=== PATIENT | male | born 1985 | race Caucasian/White ===

== ENCOUNTER 2019-02-15 11:21 | Emergency (ER) | payer OTHER ==
[~2019-02-15] VITALS: Ht 172.7 cm; Wt 76.2 kg
[~2019-02-15 11:21] MED LIST: IBUP-1955 PO
--- NOTE | 2019-02-15 12:50 | NUR ---
PATIENT WAS MSE BY DR WALLS IN ROOM 05A. PATIENT A & O X4.
[2019-02-15 13:20] LABS: BASOPHILS % (AUTO) 0.6 % (0.0-2.0); EOSINOPHILS % (AUTO) 0.8 % (0.0-7.0); HEMATOCRIT 45.1 % (36.7-47.1); HEMOGLOBIN 14.7 g/dL (12.5-16.3); LYMPHOCYTES # (AUTO) 1.9 K/uL (20.0-40.0); LYMPHOCYTES % (AUTO) 28.9 % (20.5-51.5); MEAN CORPUSCULAR HEMOGLOBIN 26.3 uug (23.8-33.4); MEAN CORPUSCULAR HGB CONC 33 g/dL (32.5-36.3); MEAN CORPUSCULAR VOLUME 80.7 fL (73.0-96.2); MONOCYTES # (AUTO) 0.4 K/uL (2.0-10.0); MONOCYTES % (AUTO) 6.9 % (0.0-11.0); NEUTROPHILS # (AUTO) 4.1 K/uL (1.8-8.9); NEUTROPHILS % (AUTO) 62.8 % (38.5-71.5); PLATELET COUNT (AUTO) 219 K/uL (152-348); RED BLOOD CELL COUNT(AUTO) 5.58 MIL/uL (4.06-5.63); WHITE BLOOD COUNT (AUTO) 6.5 K/uL (3.6-10.2)
[2019-02-15 13:24] LABS: CREATININE 0.8 mg/dL (0.6-1.3); POTASSIUM 3.4 mmol/L (3.5-5.1)
--- NOTE | 2019-02-15 13:49 | NUR ---
Patient discharged to home in stable conditon. Written and verbal after care instructions given. Patient verbalizes understanding of instructions.
[2019-02-15 13:52] VITALS: BP 120/75
== END 2019-02-15 13:59 | disposition home or self-care (01) ==
LOC: ER 11:21
DX: R00.2 Palpitations (principal); F41.9 Anxiety disorder, unspecified; Z79.1 Long term (current) use of non-steroidal anti-inflammatories (NSAID)
CPT/HCPCS: 36415; 70030-TC; 71045; 85025; 93005; A4663

== ENCOUNTER 2019-07-30 14:36 | Emergency (ER) | payer OTHER ==
[~2019-07-30] VITALS: Ht 175.3 cm; Wt 72.6 kg
--- NOTE | 2019-07-30 15:20 | NUR ---
PATIENT IS IN ROOM 2. HE IS AWAKE, ALERT, ORIENTED X4 IN NO DISTRESS.
[2019-07-30] MEDS ORDERED: ALBUTEROL SULFATE 2.5 MG/3 ML NEBU NEB ONE (15:30)
[2019-07-30] MEDS ORDERED: ALBUTEROL SULFATE 2.5 MG/3 ML NEBU ONE (15:49)
[2019-07-30] MEDS ORDERED: LIDOCAINE VISCUS 2% 15 ML UDC MM ONE (16:00)
[2019-07-30] MEDS ORDERED: MAG HYDROX/AL HYDROX/SIMETH 30 ML LIQUID UDC PO ONE (16:00)
[2019-07-30] MEDS ORDERED: PANTOPRAZOLE SODIUM 40 MG TABLET.DR PO ONE ×2 (16:00→16:11)
[2019-07-30] MEDS ORDERED: MAG HYDROX/AL HYDROX/SIMETH 30 ML LIQUID UDC ONE (16:10)
[2019-07-30] MEDS ORDERED: diphenhydrAMINE 50 MG/1 ML VIAL ONE (16:10)
[2019-07-30] MEDS ORDERED: LIDOCAINE VISCUS 2% 15 ML UDC ONE (16:11)
[2019-07-30] MEDS ORDERED: diphenhydrAMINE 50 MG/1 ML VIAL IM ONE (16:15)
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
--- NOTE | 2019-07-30 17:12 | NUR ---
DC, RX AND F/U INSTRUCTIONS GIVEN AND EXPLAINED TO PATIENT WHO STATES HE UNDERSTANDS ALL INSTRUCTIONS
== END 2019-07-30 17:15 | disposition home or self-care (01) ==
LOC: ER 14:36
DX: K21.9 Gastro-esophageal reflux disease without esophagitis (principal); R06.02 Shortness of breath; T78.1XXA Other adverse food reactions, not elsewhere classified, initial encounter; X58.XXXA Exposure to other specified factors, initial encounter; K08.89 Other specified disorders of teeth and supporting structures
CPT/HCPCS: 71045; 94640; 96372; 99284; J1200; A4663

== ENCOUNTER 2019-09-10 07:01 | Emergency (ER) | payer OTHER ==
[~2019-09-10] VITALS: Ht 177.8 cm; Wt 77.1 kg
--- NOTE | 2019-09-10 07:12 | NUR ---
Dr. Babin at bedside for MSE
[2019-09-10] MEDS ORDERED: LORAZEPAM 1 MG TABLET PO ONE (07:30)
[2019-09-10] MEDS ORDERED: ACETAMINOPHEN ES 500 MG TABLET PO ONE (07:30)
[2019-09-10] MEDS ORDERED: ACETAMINOPHEN ES 500 MG TABLET ONE (07:36)
[2019-09-10] MEDS ORDERED: LORAZEPAM 1 MG TABLET ONE (07:36)
[2019-09-10 07:43] LABS: BASOPHILS % (AUTO) 0.5 % (0.0-2.0); EOSINOPHILS % (AUTO) 0.4 % (0.0-7.0); HEMATOCRIT 44.1 % (36.7-47.1); HEMOGLOBIN 14.6 g/dL (12.5-16.3); LYMPHOCYTES # (AUTO) 1.2 K/uL (20.0-40.0); LYMPHOCYTES % (AUTO) 21.1 % (20.5-51.5); MEAN CORPUSCULAR HEMOGLOBIN 26.5 uug (23.8-33.4); MEAN CORPUSCULAR HGB CONC 33 g/dL (32.5-36.3); MEAN CORPUSCULAR VOLUME 80.2 fL (73.0-96.2); MONOCYTES # (AUTO) 0.3 K/uL (2.0-10.0); MONOCYTES % (AUTO) 5.9 % (0.0-11.0); NEUTROPHILS # (AUTO) 4.1 K/uL (1.8-8.9); NEUTROPHILS % (AUTO) 72.1 % (38.5-71.5); PLATELET COUNT (AUTO) 208 K/uL (152-348); WHITE BLOOD COUNT (AUTO) 5.7 K/uL (3.6-10.2)
--- NOTE | 2019-09-10 07:43 | NUR ---
Patient taken to Radiology dept in stable condition
[2019-09-10 08:00] LABS: BILIRUBIN,DIRECT 0.2 mg/dL (0.0-0.2); BILIRUBIN,TOTAL 0.7 mg/dL (0.2-1.0); CREATININE 0.8 mg/dL (0.6-1.3); POTASSIUM 3.8 mmol/L (3.5-5.1); TOTAL PROTEIN, SERUM 6.9 g/dL (6.4-8.2)
--- NOTE | 2019-09-10 08:58 | NUR ---
Patient discharged to home in stable condition. Written and verbal after care instructions given. Patient verbalizes understanding of instructions. Stressed follow up or return to ER for worsening s/s. Patient ambulating with steady gait. Denies any Nausea or Dizziness. NAD noted
[2019-09-10 09:12] VITALS: BP 126/83
== END 2019-09-10 08:58 | disposition home or self-care (01) ==
LOC: ER 07:04
DX: R07.2 Precordial pain (principal); F41.8 Other specified anxiety disorders; K05.00 Acute gingivitis, plaque induced; K04.01 Reversible pulpitis; K02.9 Dental caries, unspecified; K21.9 Gastro-esophageal reflux disease without esophagitis
CPT/HCPCS: 36415; 70030-TC; 71046; 83690; 85025; 93005; A4663; A9150

== ENCOUNTER 2019-10-05 22:04 | Emergency (ER) | payer OTHER ==
[~2019-10-05] VITALS: Ht 175.3 cm; Wt 77.1 kg
--- NOTE | 2019-10-05 22:20 | NUR ---
Dr. Underwood at bedside for MSE
[2019-10-05 23:25] LABS: BASOPHILS % (AUTO) 0.6 % (0.0-2.0); EOSINOPHILS % (AUTO) 0.7 % (0.0-7.0); HEMATOCRIT 44.4 % (36.7-47.1); HEMOGLOBIN 14.1 g/dL (12.5-16.3); LYMPHOCYTES # (AUTO) 1.6 K/uL (20.0-40.0); LYMPHOCYTES % (AUTO) 29.7 % (20.5-51.5); MEAN CORPUSCULAR HEMOGLOBIN 25.8 uug (23.8-33.4); MEAN CORPUSCULAR HGB CONC 32 g/dL (32.5-36.3); MEAN CORPUSCULAR VOLUME 81.2 fL (73.0-96.2); MONOCYTES # (AUTO) 0.4 K/uL (2.0-10.0); NEUTROPHILS # (AUTO) 3.3 K/uL (1.8-8.9); PLATELET COUNT (AUTO) 180 K/uL (152-348); RED BLOOD CELL COUNT(AUTO) 5.47 MIL/uL (4.06-5.63); WHITE BLOOD COUNT (AUTO) 5.5 K/uL (3.6-10.2)
[2019-10-05 23:36] LABS: CARBON DIOXIDE 30 mmol/L (21-32); CHLORIDE 104 mmol/L (98-107); CREATININE 0.9 mg/dL (0.6-1.3); GLUCOSE 87 mg/dL (74-106); POTASSIUM 3.6 mmol/L (3.5-5.1); UREA NITROGEN, BLOOD 8 mg/dL (7-18)
[2019-10-05 23:54] LABS: ALANINE AMINOTRANSFERASE 35 U/L (16-63); ALKALINE PHOSPHATASE 78 U/L (50-136); ASPARTATE AMINOTRANSFERASE 17 U/L (15-37); BILIRUBIN,TOTAL 0.8 mg/dL (0.2-1.0); FERRITIN 122 ng/mL (26-388); LACTATE DEHYDROGENASE 141 U/L (85-227); TOTAL PROTEIN, SERUM 6.8 g/dL (6.4-8.2)
[2019-10-06 00:06] LABS: ABG BASE EXCESS 1.5 mmol/L; ABG HCO3 23.3 mmol/L; ABG PCO2 29.1 mmHg (35.0-45.0); ABG PH 7.521 (7.350-7.450); ABG PO2 114.4 mmHg (75.0-100.0); ABG SITE RIGHT RADIAL; ABG TOTAL HEMOGLOBIN 14.4 G/dL (13.5-18.0); MetHb 0.3 % (0.0-1.5); O2Hb 97.5 % (94.0-97.0); VENT MODE Nasal Cannula
[2019-10-06 00:17] LABS: CREATINE KINASE, TOTAL 117 U/L (39-308)
--- NOTE | 2019-10-06 00:53 | NUR ---
IV removed. Catheter intact and site benign. Pressure and 4x4 gauze applied to site. No bleeding noted.
--- NOTE | 2019-10-06 00:56 | NUR ---
Patient discharged to home in stable condition. Written and verbal after care instructions given. Patient verbalizes understanding of instructions. Stressed follow up or return to ER for worsening s/s. aa/ox4. able to speak in complete sentences respirations even and unlabored no s/s of distress in stable condition ambulatory with steady gait all belongings with pt
[2019-10-06 00:58] VITALS: BP 132/74
== END 2019-10-06 00:59 | disposition home or self-care (01) ==
LOC: ER 22:06
DX: J18.9 Pneumonia, unspecified organism (principal); Z20.828 Contact with and (suspected) exposure to other viral communicable diseases; K21.9 Gastro-esophageal reflux disease without esophagitis; F41.0 Panic disorder [episodic paroxysmal anxiety]
CPT/HCPCS: 0099U; 36600; 71045; 80053; 82550; 82728; 83605; 83615; 83880; 84145; 84484; 85025; 85379; 85385; 85730; 86140; 87040 ×2; 87400; 93005; 99285; U0003; 70030-TC; A4663

== ENCOUNTER 2019-10-12 21:02 | Emergency (ER) | payer OTHER ==
[~2019-10-12] VITALS: Ht 172.7 cm; Wt 66.3 kg
[2019-10-12] MEDS ORDERED: IV NORMAL SALINE 1000 ML BAG IV ONE (21:30)
[2019-10-12] MEDS ORDERED: ONDANSETRON 4 MG/2 ML VIAL IV ONE (21:30)
[2019-10-12] MEDS ORDERED: HYDROMORPHONE 1 MG/1 ML DISP.SYRIN IV ONE (21:30)
[2019-10-12] MEDS ORDERED: ONDANSETRON 4 MG/2 ML VIAL ONE (21:32)
[2019-10-12] MEDS ORDERED: HYDROMORPHONE 1 MG/1 ML DISP.SYRIN ONE (21:32)
[2019-10-12 21:40] LABS: *BILIRUBIN,URIN NEGATIVE (NEGATIVE); *BLOOD, URINE NEGATIVE (NEGATIVE); *CLARITY,URINE CLEAR (CLEAR); *COLOR,URINE YELLOW (YELLOW); *KETONES,URINE 1+ (NEGATIVE); *UROBILINOGEN,URINE 0.2 E.U./dl (NORMAL); LEUKOCYTE ESTERASE ,URINE NEGATIVE (NEGATIVE); NITRITE, URINE NEGATIVE (NEGATIVE); UGLUCOSE NEGATIVE (NEGATIVE)
[2019-10-12 21:41] LABS: BASOPHILS % (AUTO) 0.3 % (0.0-2.0); EOSINOPHILS % (AUTO) 0.3 % (0.0-7.0); HEMATOCRIT 44.3 % (36.7-47.1); HEMOGLOBIN 14.4 g/dL (12.5-16.3); LYMPHOCYTES # (AUTO) 1.3 K/uL (20.0-40.0); LYMPHOCYTES % (AUTO) 17.3 % (20.5-51.5); MEAN CORPUSCULAR HEMOGLOBIN 26.1 uug (23.8-33.4); MEAN CORPUSCULAR HGB CONC 33 g/dL (32.5-36.3); MEAN CORPUSCULAR VOLUME 80.3 fL (73.0-96.2); MONOCYTES # (AUTO) 0.3 K/uL (2.0-10.0); NEUTROPHILS % (AUTO) 78.1 % (38.5-71.5); PLATELET COUNT (AUTO) 188 K/uL (152-348); RED BLOOD CELL COUNT(AUTO) 5.52 MIL/uL (4.06-5.63); WHITE BLOOD COUNT (AUTO) 7.7 K/uL (3.6-10.2)
[2019-10-12 21:46] LABS: CREATININE 0.8 mg/dL (0.6-1.3); POTASSIUM 3.7 mmol/L (3.5-5.1)
[2019-10-12 21:52] LABS: BILIRUBIN,DIRECT 0.1 mg/dL (0.0-0.2); BILIRUBIN,TOTAL 0.7 mg/dL (0.2-1.0); TOTAL PROTEIN, SERUM 6.9 g/dL (6.4-8.2)
[2019-10-12] MEDS ORDERED: MAG HYDROX/AL HYDROX/SIMETH 30 ML LIQUID UDC ONE ×2 (22:42→22:43)
[2019-10-12] MEDS ORDERED: DICYCLOMINE HCL LIQ 10 MG/5 ML UDC ONE (22:43)
[2019-10-12] MEDS ORDERED: DICYCLOMINE HCL LIQ 10 MG/5 ML UDC PO ONE (22:45)
[2019-10-12] MEDS ORDERED: MAG HYDROX/AL HYDROX/SIMETH 30 ML LIQUID UDC PO ONE (22:45)
[2019-10-12 22:46] VITALS: BP 108/70
--- NOTE | 2019-10-12 22:46 | NUR ---
IV removed. Catheter intact and site benign. Pressure and 4x4 gauze applied to site. No bleeding noted. Patient discharged to home in stable condition with family. Written and verbal after care instructions given. Patient verbalizes understanding of instructions. Stressed follow up or return to ER for worsening s/s.
== END 2019-10-12 22:48 | disposition home or self-care (01) ==
LOC: ER 21:03
DX: K21.9 Gastro-esophageal reflux disease without esophagitis (principal); F41.9 Anxiety disorder, unspecified
CPT/HCPCS: 36415; 71045; 74176; 80048; 80076; 81001; 83605; 83690; 84484; 85025; 85730; 87426; 93005; 96361; 96374; 96375; 99285; J1170; J2405; 70030-TC; J7030

== ENCOUNTER 2019-12-02 14:31 | Emergency (ER) | payer OTHER ==
[~2019-12-02] VITALS: Ht 170.2 cm; Wt 68.0 kg
--- NOTE | 2019-12-02 14:50 | NUR ---
Dr. Valentin at bedside for MSE
[2019-12-02] MEDS ORDERED: HYDROMORPHONE 1 MG/1 ML DISP.SYRIN IV ONE (15:00)
[2019-12-02] MEDS ORDERED: ONDANSETRON 4 MG/2 ML VIAL IV ONE (15:00)
[2019-12-02] MEDS ORDERED: IV NORMAL SALINE 1000 ML BAG IV ONE (15:00)
[2019-12-02] MEDS ORDERED: HYDROMORPHONE 1 MG/1 ML DISP.SYRIN ONE (15:17)
[2019-12-02] MEDS ORDERED: ONDANSETRON 4 MG/2 ML VIAL ONE (15:17)
[2019-12-02 15:18] LABS: BASOPHILS % (AUTO) 0.5 % (0.0-2.0); EOSINOPHILS % (AUTO) 0.6 % (0.0-7.0); HEMATOCRIT 44.6 % (36.7-47.1); HEMOGLOBIN 14.4 g/dL (12.5-16.3); LYMPHOCYTES # (AUTO) 1.2 K/uL (20.0-40.0); MEAN CORPUSCULAR HEMOGLOBIN 26.3 uug (23.8-33.4); MEAN CORPUSCULAR HGB CONC 32 g/dL (32.5-36.3); MEAN CORPUSCULAR VOLUME 81.1 fL (73.0-96.2); MONOCYTES # (AUTO) 0.3 K/uL (2.0-10.0); MONOCYTES % (AUTO) 5.5 % (0.0-11.0); NEUTROPHILS # (AUTO) 4.7 K/uL (1.8-8.9); NEUTROPHILS % (AUTO) 74.4 % (38.5-71.5); PLATELET COUNT (AUTO) 190 K/uL (152-348); WHITE BLOOD COUNT (AUTO) 6.3 K/uL (3.6-10.2)
[2019-12-02 15:26] LABS: CREATININE 0.8 mg/dL (0.6-1.3); POTASSIUM 3.9 mmol/L (3.5-5.1)
[2019-12-02 15:32] LABS: BILIRUBIN,DIRECT 0.1 mg/dL (0.0-0.2); BILIRUBIN,TOTAL 0.5 mg/dL (0.2-1.0)
--- NOTE | 2019-12-02 16:09 | NUR ---
IV removed. Catheter intact and site benign. Pressure and 4x4 gauze applied to site. No bleeding noted. Patient discharged to home in stable condition. Written and verbal after care instructions given. Patient verbalizes understanding of instructions. Stressed follow up or return to ER for worsening s/s. Patient ambulating with steady gait. NAD noted
[2019-12-02 16:47] VITALS: BP 114/73
== END 2019-12-02 16:09 | disposition home or self-care (01) ==
LOC: ER 14:31
DX: K08.89 Other specified disorders of teeth and supporting structures (principal); K21.9 Gastro-esophageal reflux disease without esophagitis; R07.9 Chest pain, unspecified; R10.11 Right upper quadrant pain; R11.2 Nausea with vomiting, unspecified; R19.7 Diarrhea, unspecified
CPT/HCPCS: 71045; 74176; 80048; 80076; 83690; 84484; 85025; 93005; 96361; 96374; 96375; 99285; J1170; J2405; 36415; 70030-TC; A4663; J7030

== ENCOUNTER 2020-02-29 01:27 | Emergency (ER) | payer OTHER ==
[~2020-02-29] VITALS: Ht 170.2 cm; Wt 77.1 kg
--- NOTE | 2020-02-29 01:54 | NUR ---
at bedside for MSE.
[2020-02-29] MEDS ORDERED: OXYCODONE/APAP 5-325 MG TABLET PO ONE (02:00)
[2020-02-29] MEDS ORDERED: OXYCODONE/APAP 5-325 MG TABLET ONE (02:10)
--- NOTE | 2020-02-29 02:40 | NUR ---
Patient discharged to home in stable condition. Written and verbal after care instructions given. Patient verbalizes understanding of instructions. Stressed follow up or return to ER for worsening s/s. Pt able to ambulate out of ER with steady gait. No acute distress noted.
[2020-02-29 02:46] VITALS: BP 135/67
== END 2020-02-29 03:15 | disposition home or self-care (01) ==
LOC: ER 01:31
DX: K08.89 Other specified disorders of teeth and supporting structures (principal); R07.89 Other chest pain; F41.0 Panic disorder [episodic paroxysmal anxiety]; K21.9 Gastro-esophageal reflux disease without esophagitis
CPT/HCPCS: 93005; A4663

== ENCOUNTER 2020-03-07 01:11 | Emergency (ER) | payer OTHER ==
[~2020-03-07] VITALS: Ht 177.8 cm; Wt 79.4 kg
[2020-03-07] MEDS ORDERED: HYDR-3326 PO (01:25)
[2020-03-07] MEDS ORDERED: NAPR1TAB28 PO (01:25)
[2020-03-07] MEDS ORDERED: KETOROLAC TROMETHAMINE 30 MG INJ IM ONE (01:45)
[2020-03-07] MEDS ORDERED: KETOROLAC TROMETHAMINE 30 MG INJ ONE (01:49)
--- NOTE | 2020-03-07 01:49 | NUR ---
MSE COMPLETED, TORADOL ADMIN,RX X 2 GIVEN. PT AMBULATED W/O DIFF/TOOK ALL BELONGINGS.
[2020-03-07 01:50] VITALS: BP 115/58
== END 2020-03-07 01:51 | disposition home or self-care (01) ==
LOC: ER 01:14
DX: K08.89 Other specified disorders of teeth and supporting structures (principal); F41.0 Panic disorder [episodic paroxysmal anxiety]; K21.9 Gastro-esophageal reflux disease without esophagitis
CPT/HCPCS: 96372; 99283; J1885; A4663

== ENCOUNTER 2020-05-11 02:36 | Emergency (ER) | payer OTHER ==
[~2020-05-11] VITALS: Ht 175.3 cm; Wt 77.1 kg
[~2020-05-11 02:36] MED LIST changes: +HYDR-3326 PO; -IBUP-1955 PO; +NAPR1TAB28 PO
--- NOTE | 2020-05-11 02:48 | NUR ---
Pt arrive at the ER with c/o toothache x 5 days and abd. pain.
--- NOTE | 2020-05-11 02:53 | NUR ---
Dr. Page on bedside for MSE.
[2020-05-11] MEDS ORDERED: KETOROLAC TROMETHAMINE 60 MG INJ IM ONE ×2 (03:00→03:06)
[2020-05-11] MEDS ORDERED: CLIN300C12 PO (03:04)
[2020-05-11] MEDS ORDERED: HYDR-3980 PO (03:06)
--- NOTE | 2020-05-11 03:10 | NUR ---
Patient discharged to home in stable condition. Written and verbal after care instructions given. Patient verbalizes understanding of instructions. Stressed follow up or return to ER for worsening s/s. Patient ambulated fr the ER with steady gait. All belongings with patient.
[2020-05-11 03:11] VITALS: BP 107/56
== END 2020-05-11 03:12 | disposition home or self-care (01) ==
LOC: ER 02:39
DX: G89.29 Other chronic pain (principal); K08.89 Other specified disorders of teeth and supporting structures; K21.9 Gastro-esophageal reflux disease without esophagitis
CPT/HCPCS: 96372; 99283; J1885; A4663

== ENCOUNTER 2021-09-10 01:24 | Emergency (ER) | payer SELFPAY ==
[~2021-09-10 01:24] MED LIST changes: +CLIN300C12 PO; +HYDR-3980 PO
--- NOTE | 2021-09-10 02:24 | NUR ---
Pt not in waiting room.
== END 2021-09-10 02:25 | disposition left against medical advice (07) ==
LOC: ER 01:26
DX: Z53.21 Procedure and treatment not carried out due to patient leaving prior to being seen by health care provider (principal)

== ENCOUNTER 2021-09-20 07:01 | Emergency (ER) | payer OTHER ==
[~2021-09-20] VITALS: Ht 177.8 cm; Wt 74.8 kg
--- NOTE | 2021-09-20 08:05 | NUR ---
PT SEEN AND EVALUATED BY .
[2021-09-20] MEDS ORDERED: KETOROLAC TROMETHAMINE 30 MG INJ IM ONE (08:15)
[2021-09-20] MEDS ORDERED: LIDOCAINE HCL 1% 20 ML VIAL IJ ONE (08:15)
[2021-09-20] MEDS ORDERED: LIDOCAINE HCL 2% 20 ML VIAL ONE (08:18)
[2021-09-20] MEDS ORDERED: KETOROLAC TROMETHAMINE 30 MG INJ ONE (08:18)
--- NOTE | 2021-09-20 08:24 | NUR ---
M,RDICATED FOR PAIN PER MD ORDER.
[2021-09-20] MEDS ORDERED: AMOX-430 PO (08:26)
[2021-09-20] MEDS ORDERED: TRAM-351 PO (08:27)
[2021-09-20] MEDS ORDERED: TRAM50TA2 PO ×2 (08:29→08:44)
[2021-09-20 09:32] VITALS: BP 113/80
--- NOTE | 2021-09-20 09:32 | NUR ---
Patient discharged to home in stable condition. Written and verbal after care instructions given. Patient verbalizes understanding of instructions. Stressed follow up or return to ER for worsening s/s.
[2021-09-21] MEDS ORDERED: CLIN300C3 PO (10:08)
[2021-09-21] MEDS ORDERED: OXYC5CAP18 PO (10:08)
== END 2021-09-20 09:32 | disposition home or self-care (01) ==
LOC: ER 07:01
DX: K03.81 Cracked tooth (principal); K02.9 Dental caries, unspecified
CPT/HCPCS: 99284; 64400; 96372; J1885; J3490; A4663

== ENCOUNTER 2021-09-21 08:45 | Emergency (ER) | payer OTHER ==
[~2021-09-21] VITALS: Ht 177.8 cm; Wt 74.8 kg
[~2021-09-21 08:45] MED LIST changes: +AMOX-430 PO; +TRAM50TA2 PO
[2021-09-21] MEDS ORDERED: OXYC5CAP18 PO (10:08)
[2021-09-21] MEDS ORDERED: CLIN300C3 PO (10:08)
== END 2021-09-21 10:13 | disposition home or self-care (01) ==
LOC: ER 08:45
DX: K02.9 Dental caries, unspecified (principal); K04.7 Periapical abscess without sinus; K21.9 Gastro-esophageal reflux disease without esophagitis; S02.5XXA Fracture of tooth (traumatic), initial encounter for closed fracture; X58.XXXA Exposure to other specified factors, initial encounter; Y92.89 Other specified places as the place of occurrence of the external cause
CPT/HCPCS: A4663

== ENCOUNTER 2022-01-20 14:48 | Emergency (ER) | payer OTHER ==
[~2022-01-20] VITALS: Ht 172.7 cm; Wt 66.9 kg
[~2022-01-20 14:48] MED LIST changes: +CLIN300C3 PO; +OXYC5CAP18 PO
[2022-01-20] MEDS ORDERED: TDAP DIPH,PERTUSS,TET VAC/PF 0.5 ML DISP.SYRIN IM ONE ×3 (16:00→16:23)
[2022-01-20] MEDS ORDERED: KETOROLAC TROMETHAMINE 15 MG INJ IM ONE (16:00)
[2022-01-20] MEDS ORDERED: ACETAMINOPHEN 325 MG TABLET PO ONE (16:00)
[2022-01-20] MEDS ORDERED: IBUP-1955 PO (16:05)
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
[2022-01-20] MEDS ORDERED: ACETAMINOPHEN 325 MG TABLET ONE (16:08)
[2022-01-20] MEDS ORDERED: KETOROLAC TROMETHAMINE 15 MG INJ ONE (16:08)
[2022-01-20 16:54] VITALS: BP 119/78
== END 2022-01-20 16:50 | disposition home or self-care (01) ==
LOC: ER 14:53
DX: M79.674 Pain in right toe(s) (principal); T14.90XS Injury, unspecified, sequela; Y93.55 Activity, bike riding; Z87.820 Personal history of traumatic brain injury
CPT/HCPCS: 99284; 73660; 90715; 96372; 90471; J1885; A4663

== ENCOUNTER 2022-10-20 01:57 | Emergency (ER) | payer OTHER ==
[~2022-10-20] VITALS: Ht 172.7 cm; Wt 70.3 kg
[~2022-10-20 01:57] MED LIST changes: +IBUP-1955 PO; +[UNRECOGNIZED DRUG - CODE] TP
[2022-10-20] MEDS ORDERED: LORA10TA7 PO (03:06)
[2022-10-20] MEDS ORDERED: TRIA15CR2 TP (03:06)
[2022-10-20 03:15] VITALS: BP 132/75; TEMP 97.7; O2SAT 98
== END 2022-10-20 03:15 | disposition home or self-care (01) ==
LOC: ER 02:07
DX: S90.569A Insect bite (nonvenomous), unspecified ankle, initial encounter (principal); S50.869A Insect bite (nonvenomous) of unspecified forearm, initial encounter; S00.461A Insect bite (nonvenomous) of right ear, initial encounter; F17.210 Nicotine dependence, cigarettes, uncomplicated; Z79.2 Long term (current) use of antibiotics; Z79.899 Other long term (current) drug therapy; W57.XXXA Bitten or stung by nonvenomous insect and other nonvenomous arthropods, initial encounter; Y93.89 Activity, other specified; Y92.89 Other specified places as the place of occurrence of the external cause; Y99.8 Other external cause status
CPT/HCPCS: A4663

== ENCOUNTER 2023-05-27 00:56 | Emergency (ER) | payer OTHER ==
[~2023-05-27] VITALS: Ht 172.7 cm; Wt 74.8 kg
[~2023-05-27 00:56] MED LIST changes: +LORA10TA7 PO; +TRIA15CR2 TP
[2023-05-27 02:57] VITALS: BP 118/86; TEMP 98.2
== END 2023-05-27 02:59 | disposition home or self-care (01) ==
LOC: ER 01:00
DX: S06.0X0A Concussion without loss of consciousness, initial encounter (principal); F17.200 Nicotine dependence, unspecified, uncomplicated; Z98.890 Other specified postprocedural states; Z79.899 Other long term (current) drug therapy; W22.8XXA Striking against or struck by other objects, initial encounter; Y93.89 Activity, other specified; Y92.89 Other specified places as the place of occurrence of the external cause; Y99.8 Other external cause status
CPT/HCPCS: A4606; A4663

== ENCOUNTER 2023-08-10 00:46 | Emergency (ER) | payer OTHER ==
[~2023-08-10] VITALS: Ht 175.3 cm; Wt 74.8 kg
[2023-08-10] MEDS ORDERED: CEPH500T PO (01:29)
[2023-08-10] MEDS ORDERED: CEphaleXIN 500 MG CAPSULE ONE (01:32)
[2023-08-10] MEDS: CEphaleXIN 500 MG CAPSULE PO ONE (01:34)
[2023-08-10 01:39] VITALS: BP 115/74; O2SAT 97
== END 2023-08-10 01:39 | disposition home or self-care (01) ==
LOC: ER 00:48
DX: S61.215A Laceration without foreign body of left ring finger without damage to nail, initial encounter (principal); Z87.891 Personal history of nicotine dependence; Z79.1 Long term (current) use of non-steroidal anti-inflammatories (NSAID); Z79.2 Long term (current) use of antibiotics; Z79.899 Other long term (current) drug therapy; W26.0XXA Contact with knife, initial encounter; Y93.89 Activity, other specified; Y92.89 Other specified places as the place of occurrence of the external cause; Y99.8 Other external cause status
CPT/HCPCS: 73140; A4606; A4663